=== PATIENT | male | born 1970 | race Caucasian/White ===

== ENCOUNTER 2016-06-06 13:58 | Emergency (ER) | payer MEDICAID ==
[2016-06-06] MEDS ORDERED: KETOROLAC 60 MG/2 ML VIAL IM ONE (15:37)
== END 2016-06-06 16:20 | disposition home or self-care (01) ==
LOC: FASTR 13:58
DX: M17.12 Unilateral primary osteoarthritis, left knee (principal); M25.562 Pain in left knee
CPT/HCPCS: 96372